=== PATIENT | male | born 1970 | race African-American/Black ===

== ENCOUNTER → 2016-09-02 | Outpatient (CLI) | payer BC ==
--- NOTE | 2016-09-02 12:08 | DIAGNOSTIC IMAGING REPORT ---
RIGHT KNEE 3 VIEWS CLINICAL HISTORY: Right knee mass COMPARISON: None. DISCUSSION: No acute fractures are visualized. There are osteoarthritic changes present with dorsal patellar spurring and mild spurring arising from the medial joint compartment. There is mild soft tissue prominence medially. This could correlate with the palpable abnormality. And MRI could be obtained in follow-up as deemed clinically indicated. IMPRESSION: 1. No acute fractures 2. Mild osteoarthritic changes 3. If evaluation of the palpable soft tissue mass is desired, an MRI would be considered the test of choice. Electronically signed by: Josh Eden M.D. 09/02/2016 12:06 PM Dictated Date/Time: 09/02/2016 12:05 PM
== END | disposition home or self-care (01) ==
LOC: C.RAD1850 11:35
PROVIDERS: ATTEND Internal Medicine
DX: R22.9 Localized swelling, mass and lump, unspecified (principal)

== ENCOUNTER → 2016-10-07 | Outpatient (CLI) | payer BC ==
--- NOTE | 2016-10-07 11:50 | DIAGNOSTIC IMAGING REPORT ---
CHEST 2 VIEWS ROUTINE CLINICAL HISTORY: BURNING CHEST PAIN dyspnea COMPARISON STUDY: No previous studies for comparison. FINDINGS: The bones soft tissues and hemidiaphragms are normal. The cardiomediastinal silhouette is normal. The lungs are clear. The pulmonary vasculature is normal. IMPRESSION: Negative chest. Electronically signed by: Luiz Sims M.D. 10/07/2016 11:48 AM Dictated Date/Time: 10/07/2016 11:48 AM
== END | disposition home or self-care (01) ==
LOC: C.RAD1850 11:37
PROVIDERS: ATTEND Family Medicine
DX: R07.89 Other chest pain (principal)

== ENCOUNTER → 2017-11-18 | Outpatient (CLI) | payer OTHER ==
[~2017-11-18] MED LIST: OPTIRAY 320 IV PRN
--- NOTE | 2017-11-18 09:31 | DIAGNOSTIC IMAGING REPORT ---
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 COMPARISON: CT head 04/21/2007 TECHNIQUE: Multiple axial CT images of the orbits were obtained both with and without the use of 92 mL Optiray 320 IV contrast. A dose lowering technique was used consistent with the principals of LV. FINDINGS: There is moderate thickening with enhancement involving the anterior and posterior sclera about the right globe without significant cellulitis changes noted within the intraconal tissues. No significant post septal cellulitis or drainable fluid collection. The left globe and sclera appear unremarkable. No enhancing intraorbital mass identified. The bilateral lacrimal glands appear unremarkable. There is mild asymmetric thickening about the left optic nerve with minimal surrounding inflammatory stranding image 25 series 100. The extraocular musculature appear unremarkable and symmetric. Superior ophthalmic veins appear patent and within normal limits. Bilateral ophthalmic arteries also appear within normal limits. Image intracranial structures demonstrate no acute abnormality. Mastoid air cells and middle ear cavities are clear. Bones appear intact. Paranasal sinuses are clear. IMPRESSION: 1. Moderate thickening and enhancement of the anterior and posterior sclera of the right globe is compatible with acute scleritis without significant associated cellulitic changes. 2. Additionally, there is suggestion of mild thickening with mild surrounding edema involving the left optic nerve. Correlate clinically to exclude acute optic neuritis. 3. No drainable fluid collections, intraorbital mass or significant post septal inflammatory changes. The above report was generated using voice recognition software. It may contain grammatical, syntax or spelling errors. Electronically signed by: Linwood Plasencia M.D. 11/18/2017 9:29 AM Dictated Date/Time: 11/18/2017 9:19 AM
== END | disposition home or self-care (01) ==
LOC: C.CTS 08:39
PROVIDERS: ATTEND Internal Medicine Hematology & Oncology
DX: C92.00 Acute myeloblastic leukemia, not having achieved remission (principal)